=== PATIENT | male | born 1945 | race Two or more races ===

== ENCOUNTER → 2024-12-07 | Outpatient (CLI) | payer OTHER, MEDICAID, SELFPAY ==
--- NOTE | 2024-12-07 | XR_ITS ---
EXAMINATION: Lumbar spine 3 views TECHNIQUE: AP lateral: Lateral and lower lumbar spine 3 views Date and time: December 07, 2024, 0804 hours, comparison 08/13/2022 INDICATIONS: Lower back pain beginning 1 year ago. FINDINGS: Severe osteopenia Severe chronic osteoporotic compression L1 Prominent lumbar spondylosis Diffuse lumbar disc narrowing, moderate to advanced L4-L5, moderate at L5-S1 IMPRESSION: Diffuse lumbar degenerative disc disease, moderate to advanced L4-L5, moderate at L5-S1
== END | disposition home or self-care (01) ==
PROVIDERS: PCP Family Medicine; Referring Provider Family Medicine; Visit Provider Family Medicine
DX: M51.360 Other intervertebral disc degeneration, lumbar region with discogenic back pain only (principal); M51.370 Other intervertebral disc degeneration, lumbosacral region with discogenic back pain only
CPT/HCPCS: 72100